=== PATIENT | female | born 1970 | race Caucasian/White ===

== ENCOUNTER → 2018-07-29 | Day surgery (SDC) | payer OTHER ==
--- NOTE | 2018-07-30 18:06 | PATH ---
Surgical Pathology Report Patient Name: CAPRICE ARRIAGA [facility]. Rec. #: [id number] /Age/Gender: 1970 (Age: 48) / F Account: [id number] Location: [facility] Taken: 07/29/2018 Received: 07/29/2018 Reported: 07/30/2018 Physicians: Mayito Osullivan MD Specimen(s) Received RIGHT BREAST CORE 300, 5 CM FN Clinical History History of bilateral breast reduction surgery Final Diagnosis BREAST, RIGHT, 3:00, 5 CM FN, CORE BIOPSY:BENIGN FIBROADIPOSE TISSUE WITH CHRONIC INFLAMMATION, HISTIOCYTIC INFILTRATE, FEW MULTINUCLEATED GIANT CELLS, FAT NECROSIS, AND ASSOCIATED REACTIVE CHANGES. Comment: Suggest clinical and radiologic correlation. See concurrent material ([id number]). Electronically Signed Adwoa Krishnan M.D. Gross Description Received in formalin labeled "right breast biopsy 3:00, 5cmfn," is a 1.6 x 1.4 x 0.2 cm aggregate of jaimes brown fragments of necrotic material and blood clot, possibly containing fibroadipose tissue. The formalin is filtered and the specimen is entirely submitted in one cassette. Time to formalin fixation: 2 minutes Total formalin fixation time: Approximately 7 hours. /07/29/2018 [facility]07/29/2018
== END | disposition home or self-care (01) ==
LOC: FMAMMOTONE 08:34
PROVIDERS: ATTEND Family Medicine
PROC: 0HBV3ZX Excision of Bilateral Breast, Percutaneous Approach, Diagnostic (ICD-10-PCS; principal; 2018-07-29)
DX: N64.1 Fat necrosis of breast (principal); N64.89 Other specified disorders of breast; R92.1 Mammographic calcification found on diagnostic imaging of breast
CPT/HCPCS: 19081; 19082; 19083; 87899; 88305-TC; A4648

== ENCOUNTER 2018-08-21 14:32 | Emergency (ER) | payer OTHER ==
[2018-08-21 14:41] VITALS: BMI 25.7
[2018-08-21] MEDS ORDERED: FAMOTIDINE 20 MG/50 ML IVPB 20 MG/50 ML MG IVPB ONE ×2 (14:55→15:01)
[2018-08-21] MEDS ORDERED: ONDANSETRON 4 MG/2 ML VIAL IVPUSH ONE (14:55)
[2018-08-21] MEDS ORDERED: SODIUM CHLORIDE 0.9% 500 ML INFUS.BAG IV ONE (14:55)
[2018-08-21] MEDS ORDERED: ONDANSETRON 4 MG/2 ML VIAL ONE (15:01)
--- NOTE | 2018-08-21 15:03 | PDOC ---
History of Present Illness - General Chief Complaint: Vomiting/Diarrhea Stated Complaint: VOMITNG/ DIARRHEA Time Seen by Provider: 08/21/18 14:45 - History of Present Illness Initial Comments: Radha Ramachandran is a 48yo woman with a PMH of GERD who presents with 12 hours of frequent vomiting and diarrhea. She states that she was feeling well yesterday, was able to eat normally throughout the day, but had onset of NBNB vomiting and non-bloody diarrhea around 1am. She says that the episodes are "every 5 minutes " and that everything she tries to eat/drink comes right back up. Ms Ramachandran denies any abdominal pain, distension/bloating, or history of frequent abdominal symptoms. She does have a history of acid reflux, and she takes occasional omeprazole for symptoms. She denies any recent fevers/shivering, travel, or sick contacts. She cooked at home yesterday, and her entire family ate the same food w/o anyone else developing symptoms today. Past History - Past Medical History Allergies/Adverse Reactions: Allergies Allergy/AdvReac Type Severity Reaction Status Date / Time No Known Drug Allergies Allergy Verified 08/21/18 14:41 Home Medications: Ambulatory Orders NK [No Known Home Medication] 08/21/18 Anemia: No - Suicide/Smoking/Psychosocial Hx Smoking History: Never smoked Have you smoked in the past 12 months: No Information on smoking cessation initiated: No Hx Alcohol Use: No Drug/Substance Use Hx: No Substance Use Type: None Hx Substance Use Treatment: No Review of Systems - Review of Systems Comments:: General: No fevers, no chills, no weight or appetite change, no malaise HEENT: No changes in vision, no changes in hearing, no congestion, no sore throat CV: No chest pain, no palpitations, no LE edema Pulm: No SOB, no cough, no wheezing GI: See HPI : No frequency, no urgency, no dysuria Musc: No back pain, no joint swelling, no recent injury Skin: No rash, no lesions, no erythema Endo: No excessive thirst, no heat/cold intolerance Heme: No unusual bruising or bleeding, no swollen glands Neuro: No syncope, no numbness/tingling, no focal weakness Vasc: No claudication Psych: No recent change in mood, no SI or HI *Physical Exam - Vital Signs Last Vital Signs Temp Pulse Resp BP Pulse Ox 99.0 F 117 H 18 145/86 98 08/21/18 14:38 08/21/18 14:38 08/21/18 14:38 08/21/18 14:38 08/21/18 14:38 - Physical Exam Comments: General: Comfortable, no acute distress HEENT: PERRL, EOMI, slighty dry tongue and lips, voice normal Cards: RRR, no murmur appreciated Pulm: Comfortable on room air, clear to auscultation bilaterally Abd: Soft, nontender, nondistended, BS present Ext: Atraumatic. No LE edema. ROM intact Vasc: Extremities WWP Skin: Normal color, no rashes or lesions Neuro: A&Ox3, CN grossly intact, normal speech, motor/sensory grossly intact and symmetric Psych: Mood appropriate to situation ED Treatment Course - LABORATORY CBC & Chemistry Diagram: 08/21/18 15:15 08/21/18 15:15 Medical Decision Making - Medical Decision Making 08/21/18 15:03 Radha Ramachandran is a 48yo woman with a PMH of GERD who presents with 12 hours of frequent vomiting and diarrhea. She states that she was feeling well yesterday, was able to eat normally throughout the day, but had onset of NBNB vomiting and non-bloody diarrhea around 1am. She says that the episodes are "every 5 minutes " and that everything she tries to eat/drink comes right back up. Ms Ramachandran denies any abdominal pain, distension/bloating, or history of frequent abdominal symptoms. She does have a history of acid reflux, and she takes occasional omeprazole for symptoms. She denies any recent fevers/shivering, travel, or sick contacts. She cooked at home yesterday, and her entire family ate the same food w/o anyone else developing symptoms today. - Most likely gastroenteritis, probably viral. Possibly pancreatitis. Low suspicion for other intra-abdminal pathology such as cholecystitis or appendicitis as she has a benign abdominal exam. - CBC, CMP, lipase - Appears dry, 1L IVF - Famotidine and zofran for symptoms 08/21/18 16:09 - Labs reviewed. No concerning abnormalities - Pt feeling somewhat improved. Will PO challenge 08/21/18 16:49 - Tolerated PO challenge w/o difficulty. Feels much better, ready to go home - Repeat vitals prior to discharge as she was tachy on arrival - Discussed home care, return precautions, follow up at length. Ms Ramachandran understands and agrees 08/21/18 16:59 - Repeat HR 89 - D/C home Discussed with Dr Regan. Maria Del Carmen Ferraro PGY1 *DC/Admit/Observation/Transfer Diagnosis at time of Disposition: Vomiting and diarrhea - Discharge Dispostion Disposition: HOME Condition at time of disposition: Stable Decision to Admit order: No - Referrals - Patient Instructions Printed Discharge Instructions: DI for Viral Gastroenteritis -- Adult Additional Instructions: Discharge Instructions: You were seen in the ED for vomiting and diarrhea. Your blood tests did not show any concerning abnormalities. You felt a little better after IV fluids and anti-nausea medication. Your symptoms are most likely due to a virus should resolve within a few days. Home Care and Follow Up: - Make sure you are drinking plenty of fluids at home. Drinking small amounts frequently is likely the easiest way to keep enough fluids down. Water, soda, or broth are good options. You may buy an electrolyte solution such as Pedialyte if you choose. - Avoid large amounts of juice, dairy products, spicy foods, oily/greasy foods, caffeine and alcohol until you feel better - It is OK not to eat as long as you are staying hydrated. - When you start eating again, eat plain foods such as rice or bananas initially - You have been prescribed an anti-nausea medication called Zofran (ondansetron ) that may be taken every 6-8 hours as needed for nausea or vomiting. - Call your primary doctor to schedule a follow up appointment in 2-3 days - Seek immediate care if your symptoms worsen, you are unable to stay hydrated, you develop abdominal pain, you have fever to 101F, you see blood in your vomit or stool, or you have any other medical problems. Instrucciones de descarga: Te vieron en el servicio de urgencias por vmitos y diarrea. Zina anlisis de gary no mostraron anormalidades preocupantes. Se sinti un poco mejor despus de los lquidos intravenosos y los medicamentos contra las nuseas. Zina sntomas son ms probables debido a que un virus debera resolverse en unos pocos moran. Atencin domiciliaria y seguimiento: - Asegrate de beber muchos lquidos en casa. Beber pequeas cantidades con frecuencia es probablemente la forma ms fcil de retener suficientes lquidos. El agua, las gaseosas o el caldo son buenas opciones. Si lo desea, puede comprar nima solucin electroltica lauren Pedialyte. - Evite grandes cantidades de jugo, productos lcteos, comidas picantes, alimentos grasos / grasientos, cafena y alcohol hasta que se sienta mejor. - Est esther no comer mientras est hidratado. - Cuando comience a comer nuevamente, coma alimentos simples lauren el arroz o los pltanos inicialmente. - Le ambrose recetado un medicamento contra las nuseas llamado Zofran (ondansetron ) que puede tomarse cada 6-8 horas segn sea necesario para la nusea o el vmito. - Llame a hernandez mdico de cabecera para programar nima christa de seguimiento en 2-3 moran. - Busque atencin inmediata si zina sntomas empeoran, no puede mantenerse hidratado, tiene dolor abdominal, tiene fiebre a 101F, ve gary en el vmito o las heces o si tiene algn otro problema mdico. Print Language: TRINIDADIAN - Post Discharge Activity
--- NOTE | 2018-08-21 15:33 | PDOC ---
Documentation entered by Shanel Harper SCRIBE, acting as scribe for Brendon Regan MD. Brendon Regan MD: This documentation has been prepared by the Leroy perez Brenda, SCRIBE, under my direction and personally reviewed by me in its entirety. I confirm that the documentation accurately reflects all work, treatment, procedures, and medical decision making performed by me. Attending Attestation - Resident Resident Name: JasmineMaria Del Carmen - ED Attending Attestation I have performed the following: I have examined & evaluated the patient, The case was reviewed & discussed with the resident, I agree w/resident's findings & plan, Exceptions are as noted - HPI HPI: 08/21/18 15:31 48 F with no PMH presents to ED with N+V+D since this morning. Pt reports vomiting several times, nonbloody. Also endorses watery brown diarrhea. She denies abdominal pain. States that her symptoms started around 1AM, and she has not been able to keep anything down. No flank pain/dysuria. No F/C. No vaginal discharge/bleeding. No sick contacts at home. - Physicial Exam PE: 08/21/18 15:32 "GENERAL: Awake, alert, and fully oriented, in no acute distress. HEAD: No signs of trauma EYES: PERRLA, EOMI, sclera anicteric, conjunctiva clear ENT: Auricles normal inspection, hearing grossly normal, nares patent, oropharynx clear without exudates. Moist mucosa NECK: Nontender, no stepoffs, Normal ROM, supple, no lymphadenopathy, JVD, or masses LUNGS: Breath sounds equal, clear to auscultation bilaterally. No wheezes, and no crackles HEART: Regular rate and rhythm, normal S1 and S2, no murmurs, rubs or gallops ABDOMEN: Soft, nontender, normoactive bowel sounds. No guarding, no rebound. No masses EXTREMITIES: Normal range of motion, no edema. No clubbing or cyanosis. No cords, erythema, or tenderness NEUROLOGICAL: Cranial nerves II through XII intact. 5/5 strength and sensation in all extremities, Normal speech, normal gait, normal cerebellar function SKIN: Warm, Dry, normal turgor, no rashes or lesions noted. - Medical Decision Making 08/21/18 15:32 48 F with N+V+D x 1 day. Completely benign exam. No evidence of acute intraabdominal process. Suspect viral gastroenteritis. - labs - GI cocktail, IVF - Reassess
[2018-08-21 15:38] LABS: BASO % 0.3 % (0-2.0); EOS % 0.1 % (0-4.5); HEMATOCRIT 42.8 % (32.4-45.2); HEMOGLOBIN 14.3 GM/dL (10.7-15.3); LYMPH % 8.6 % (8-40); MCH 31.2 pg (25.7-33.7); MCHC 33.5 g/dl (32.0-36.0); MEAN CELL VOLUME 93.2 fl (80-96); MEAN PLT VOLUME 10.2 fl (7.5-11.1); MONO % 6.1 % (3.8-10.2); NEUT % 84.9 % (42.8-82.8); PLATELET COUNT 241 K/MM3 (134-434); RDW 13.1 % (11.6-15.6); WHITE BLOOD COUNT 8.1 K/mm3 (4.0-10.0)
[2018-08-21 15:56] LABS: ALBUMIN 3.9 g/dl (3.4-5.0); BILIRUBIN,TOTAL 1.1 mg/dL (0.2-1); BLOOD UREA NITROGEN 11.8 mg/dL (7-18); CALCIUM 8.6 mg/dL (8.5-10.1); CREATININE 0.8 mg/dL (0.55-1.3); POTASSIUM 3.4 mmol/L (3.5-5.1); TOT PROT 8.1 g/dl (6.4-8.2)
[2018-08-21 16:57] VITALS: BP 125/80; PULSE 89; TEMP 98.6
== END 2018-08-21 17:50 | disposition home or self-care (01) ==
LOC: JER 14:32
PROC: 3E033GC Introduction of Other Therapeutic Substance into Peripheral Vein, Percutaneous Approach (ICD-10-PCS; principal; 2018-08-21)
PROC: 3E033GC Introduction of Other Therapeutic Substance into Peripheral Vein, Percutaneous Approach (ICD-10-PCS; 2018-08-21)
DX: A08.4 Viral intestinal infection, unspecified (principal); B97.89 Other viral agents as the cause of diseases classified elsewhere
CPT/HCPCS: 36415; 80053; 83690; 85025; 96365; 96375; 99281-25